=== PATIENT | female | born 1930 ===

== ENCOUNTER 2021-04-22 08:06 | Outpatient (CLI) | payer OTHER | END 2021-04-22 08:08 | disposition home or self-care (01) | LOC: LAB 08:06 | PROVIDERS: ATTEND Orthopaedic Surgery | DX: E56.1 Deficiency of vitamin K (principal) ==

== ENCOUNTER 2021-08-21 11:27 | Emergency (ER) | payer OTHER ==
[~2021-08-21] VITALS: Ht 129.5 cm; Wt 54.4 kg
== END 2021-08-21 14:46 | disposition home or self-care (01) ==
LOC: ER 11:27
DX: S80.02XA Contusion of left knee, initial encounter (principal); S80.01XA Contusion of right knee, initial encounter; S40.011A Contusion of right shoulder, initial encounter; S40.012A Contusion of left shoulder, initial encounter; M75.32 Calcific tendinitis of left shoulder; W18.39XA Other fall on same level, initial encounter; Y93.89 Activity, other specified; Y92.89 Other specified places as the place of occurrence of the external cause; Y99.8 Other external cause status